=== PATIENT | female | born 1945 | race Caucasian/White ===

== ENCOUNTER 2017-11-05 08:43 | Day surgery (SDC) | payer MEDICARE, OTHER, SELFPAY ==
[2017-11-05 09:24] VITALS: BMI 23.8
[2017-11-05] MEDS: PROPARACAINE 0.5% OPHTH SOL 2 DROPS EYE-OP (09:24)
[2017-11-05] MEDS: CATARACT EYE COMPOUND (10 DROPS/SYRINGE) 3 DROPS EYE-OP (09:29)
[2017-11-05 09:31] VITALS: BP 147/66; PULSE 76; RESP 15; TEMP 35.9; O2SAT 98
--- NOTE | 2017-11-05 10:44 | SUR.OPER ---
Supine on eye stretcher, head on extension cradle secured with tape. Arms tucked at sides with blanket. Pillow under knees.
[2017-11-05] MEDS: LIDOCAINE JELLY 2% 5 ML 1 APPLIC TOP (10:48)
[2017-11-05] MEDS: BALANCED SALT IRRIG SOLN NO.2 500 ML, EPINEPHrine 1 MG IRR (10:48)
[2017-11-05] MEDS: TRIAMCINOLONE 50 MG/5 ML VIAL INJ (10:49)
[2017-11-05] MEDS: TETRACAINE 0.5% OPHTH DROPS 15 ML 2 DROPS EYE-RIGHT (10:50)
[2017-11-05] MEDS: MOXIFLOXACIN OPHTH DROPS 3 ML BOTTLE 2 DROPS INJ (10:51)
[2017-11-05] MEDS: PHENYLEPHRINE/LIDOCAINE 3ML VIAL (OR) EYE-OP (10:52)
--- NOTE | 2017-11-05 10:56 | P.OP.PRE_ITS ---
Pre-operative Note Interval Note Changes: No
--- NOTE | 2017-11-05 10:56 | PM.PREOP ---
Pre-operative Note Interval Note Changes: No
--- NOTE | 2017-11-05 10:56 | PM.OP.1 ---
Operative Date/Time/Diagnoses Pre-op diagnosis: Cataract Right eye Post-op diagnosis: same Procedure & Clinicians Procedure: Cataract Surgery Same procedure as scheduled: Yes Surgeon: Jean Bentley Anesthesia Type: MAC +/- and Sedation Operative Notes Procedure in detail: Patient brought to the operating suite. Tetracaine drops placed in the right eye. Marking instrument was used to fuad the vertical and horizontal meridians. Patient was prepped and draped in sterile manner. Wire lid speculum was placed in the eye. The marking instrument was used to fuad the 75 degree meridian. Betadine drops were placed on the eye. This was irrigated. Lidocaine jelly was placed on the eye. A paracentesis port was created with a side-port blade. 0.1 mL 1% preservative free lidocaine was injected into the anterior chamber. The anterior chamber was deepened with viscoelastic. 2.6 mm keratome was used to create a temporal clear corneal incision. Cystotome and Utrata forceps were used to create continuous tear capsulorrhexis. Balanced salt solution was used to hydro dissect the nucleus. The phacoemulsification handpiece was inserted and the nucleus was removed using the stop and chop technique. The irrigation aspiration handpiece was inserted and the remaining cortex was removed. Anterior chamber was deepened with viscoelastic. An Macias [id number] intraocular lens with a power of 15.0 was injected into the capsular bag. The lens was rotated to the 75 degree meridian. Irrigation aspiration handpiece was inserted and the remaining viscoelastic was removed. Incision was hydrated with balanced salt solution and found to be leak free with pressure with Weck-Rhonda sponges. 0.1 mL Vigamox injected anterior chamber. 0.3 mL Kenalog 10 mg was injected subconjunctivally. Lid speculum was removed. The patient left the operating room in excellent condition. Complications: none Condition: stable Disposition: same day surgery
[2017-11-05 11:13] VITALS: BP 123/70; PULSE 65; RESP 15; TEMP 36.2; O2SAT 99
== END 2017-11-05 11:08 | disposition home or self-care (01) ==
PROVIDERS: PCP Physician Assistant; Visit Provider Ophthalmology
DX: H25.11 Age-related nuclear cataract, right eye (principal)
CPT/HCPCS: J0171; J2250; J3301; V2787

== ENCOUNTER 2017-11-19 10:27 | Day surgery (SDC) | payer MEDICARE, OTHER, SELFPAY ==
[2017-11-19 10:45] VITALS: BP 145/77; PULSE 70; RESP 16; TEMP 36.4; O2SAT 98; BMI 24.0
[2017-11-19] MEDS: PROPARACAINE 0.5% OPHTH SOL 2 DROPS EYE-OP (10:45)
[2017-11-19] MEDS: CATARACT EYE COMPOUND (10 DROPS/SYRINGE) 3 DROPS EYE-OP (10:55)
--- NOTE | 2017-11-19 11:17 | P.OP.PRE_ITS ---
Pre-operative Note Interval Note Changes: No
--- NOTE | 2017-11-19 11:17 | P.OP_ITS ---
Operative Date/Time/Diagnoses Pre-op diagnosis: Cataract Left eye Post-op diagnosis: same Procedure & Clinicians Surgeon: Jean Bentley Anesthesia Type: MAC +/- and Sedation Operative Notes Procedure in detail: Patient brought to the operating suite. Tetracaine drops placed in the left eye. Patient was prepped and draped in sterile manner. Wire lid speculum was placed in the eye. Betadine drops were placed on the eye. This was irrigated. Lidocaine jelly was placed on the eye. A paracentesis port was created with a side-port blade. 0.1 mL 1% preservative free lidocaine was injected into the anterior chamber. The anterior chamber was deepened with viscoelastic. 2.6 mm keratome was used to create a temporal clear corneal incision. Cystotome and Utrata forceps were used to create continuous tear capsulorrhexis. Balanced salt solution was used to hydro dissect the nucleus. The phacoemulsification handpiece was inserted and the nucleus was removed using the stop and chop technique. The irrigation aspiration handpiece was inserted and the remaining cortex was removed. Anterior chamber was deepened with viscoelastic. An Macias ZCB00 intraocular lens with a power of 15.5 was injected into the capsular bag. Irrigation aspiration handpiece was inserted and the remaining viscoelastic was removed. Incision was hydrated with balanced salt solution and found to be leak free with pressure with Weck- Rhonda sponges. 0.1 mL Vigamox injected anterior chamber. 0.3 mL Kenalog 10 mg was injected subconjunctivally. Lid speculum was removed. The patient left the operating room in excellent condition. Complications: none Condition: stable Disposition: same day surgery
--- NOTE | 2017-11-19 11:17 | PM.PREOP ---
Pre-operative Note Interval Note Changes: No
[2017-11-19] MEDS: MOXIFLOXACIN OPHTH DROPS 3 ML BOTTLE 2 DROPS INJ (11:27)
[2017-11-19] MEDS: PHENYLEPHRINE/LIDOCAINE 3ML VIAL (OR) EYE-OP (11:28)
[2017-11-19] MEDS: LIDOCAINE JELLY 2% 5 ML 1 APPLIC TOP (11:28)
[2017-11-19] MEDS: TRIAMCINOLONE 50 MG/5 ML VIAL INJ (11:28)
[2017-11-19] MEDS: TETRACAINE 0.5% OPHTH DROPS 15 ML 2 DROPS EYE-LEFT (11:28)
[2017-11-19] MEDS: BALANCED SALT IRRIG SOLN NO.2 500 ML, EPINEPHrine 1 MG IRR (11:29)
[2017-11-19] MEDS: CHONDROIDTIN/SOD HYALURONATE 1.05 ML SYRINGE INTRAOCULA (11:29)
[2017-11-19 11:50] VITALS: BP 117/71; PULSE 69; RESP 16; TEMP 36.5; O2SAT 97
== END 2017-11-19 11:58 ==
LOC: OR 10:28
PROVIDERS: PCP Physician Assistant; Visit Provider Ophthalmology
DX: H25.12 Age-related nuclear cataract, left eye (principal)
CPT/HCPCS: J0171; J3301

== ENCOUNTER 2019-01-24 07:25 | Emergency (ER) | payer MEDICARE, OTHER, SELFPAY ==
[2019-01-24 07:37] VITALS: BP 143/70; PULSE 82; RESP 16; TEMP 36.8; O2SAT 97; BMI 21.2
--- NOTE | 2019-01-24 07:55 | ED_ITS ---
HPI - Abdominal Pain General Chief Complaint: Abdominal Pain Stated Complaint: rectal bleeding/rlq pain/nausea x1 day Time Seen by Provider: 01/24/19 07:48 Source: patient Mode of arrival: Ambulatory Limitations: no limitations History of Present Illness HPI narrative: 73-year-old female here for evaluation of less than 24 hours of multiple episodes nausea and vomiting. She did state that this morning the diarrhea turned into bright red blood per rectum. States she is having no increasing pain in her lower abdomen. No prior abdominal surgeries. States the nausea comes and goes. She is not currently having any nausea. No recent travel. No recent antibiotics use. Related Data Previous Rx's Medication Instructions Recorded ondansetron HCl [Zofran] 4 mg PO Q6H PRN #10 tab 01/24/19 Allergies Allergy/AdvReac Type Severity Reaction Status Date / Time shellfish derived Allergy Severe Vomiting Verified 11/05/17 09:23 Penicillins AdvReac Unknown Nausea Verified 11/05/17 09:22 Review of Systems Constitutional Constitutional: Denies fever(s) Cardiovascular Cardiovascular: Denies chest pain and Denies dyspnea Respiratory Respiratory: Denies dyspnea Gastrointestinal Gastrointestinal: Reports abdominal pain, Reports diarrhea, Reports nausea and Reports vomiting Genitourinary Genitourinary: Denies dysuria Musculoskeletal Musculoskeletal: Denies myalgias and Denies arthralgias Integumentary/Breasts Skin/Breast: Denies lesions and Denies rash Hematologic/Lymphatic Hematologic/Lymphatic: Denies easy bleeding and Denies easy bruising [facility] Medical History Patient denies medical problems (Acute) Social History household members: spouse Smoking Status: Never smoker Social History household members: spouse Smoking Status: Never smoker Exam Initial Vital Signs Initial Vital Signs: Vital Signs Temperature 98.3 F 01/24/19 07:37 Pulse Rate 82 01/24/19 07:37 Respiratory Rate 16 01/24/19 07:37 Blood Pressure 143/70 H 01/24/19 07:37 Pulse Oximetry 97 01/24/19 07:37 Resp Effort & Inspection: normal respiratory effort Auscultation: clear to auscultation bilaterally GI Inspection: non-distended Palpation: soft, No firm and No tender Skin Lesions: no lesions Rashes: no rashes Neuro General: alert and awake Cognition: normal cognition Speech: speech normal Gait: normal gait Extrem General: normal to inspection and capillary refill normal Psych Appearance: grossly normal and well kempt Course Orders Ordered: ED Orders 01/24/19 07:48 Complete Blood Count AUTO DIFF Stat Comprehensive Metabolic Panel Stat Lipase Stat Partial Thromboplastin Time Stat Prothrombin Time INR Stat 01/24/19 07:49 EKG-12 Lead Stat 01/24/19 07:55 CT abdomen pelvis w con Stat 01/24/19 09:31 Lactate (Lactic Acid) Stat Ondansetron HCl (Zofran) 4 mg IV Q2HR PRN PRN Reason: Nausea And Vomiting Discontinued Medications Sodium Chloride (Normal Saline 0.9%) 1,000 mls @ 1,000 mls/hr IV BOLUS ONE Stop: 01/24/19 08:54 Last Infusion: 01/24/19 10:15 Dose: 0 mls/hr Documented by: Admin: 01/24/19 08:49 Dose: 1,000 mls/hr Documented by: JERONIMO Ketorolac Tromethamine (Toradol) 30 mg IV NOW ONE Stop: 01/24/19 09:07 Last Admin: 01/24/19 09:21 Dose: 30 mg Documented by: JERONIMO Vital Signs Vital signs: Vital Signs - 8 hr 01/24/19 07:37 Temperature 98.3 F Pulse Rate 82 Respiratory Rate 16 Blood Pressure 143/70 H Pulse Oximetry 97 MDM - Abdominal Pain Lab Data Attestation: I reviewed the patient's lab results. Result diagrams: 01/24/19 07:48 01/24/19 07:48 Labs: Lab Results 01/24/19 01/24/19 01/24/19 Range/Units 07:48 07:48 07:48 WBC 13.3 H (4.5-11.0) X10^3/uL RBC 5.22 H (4.0-5.2) X10^6/uL Hgb 15.8 (12.0-16.0) g/dL Hct 47.9 H (36-46) % MCV 91.8 (80-100) fL MCH 30.3 (26-34) PG MCHC 33.0 (30-36) % RDW 12.9 (11.6-14.8) % Plt Count 263 (150-400) X10^3/uL Neut % (Auto) 88.1 H (50-75) % Lymph % (Auto) 9.1 L (25-40) % Victoria % (Auto) 2.2 L (3-14) % Eos % (Auto) 0.0 L (2-4) % Baso % (Auto) 0.6 (0-2) % Neut # (Auto) 36796 H (0721-9918) /uL Lymph # (Auto) 1200 (5386-1113) /uL Victoria # (Auto) 300 (0-900) /uL Eos # (Auto) 0 (0-450) /uL Baso # (Auto) 100 (0-100) /uL PT 11.3 (10.1-12.7) SECONDS INR 1.0 (0.9-1.3) APTT 31 (26.4-36.2) SECONDS Sodium 139 (137-145) mmol/L Potassium 3.5 (3.4-5.1) mmol/L Chloride 100 (98-107) mmol/L Carbon Dioxide 25 (22-32) mmol/L BUN 13 (7-17) mg/dL Creatinine 0.50 L (0.52-1.04) mg/dL Estimated GFR > 60.0 (>60) mL/min BUN/Creatinine Ratio 26.0 H (6-22) Glucose 138 H (80-110) mg/dL Lactate (0.7-2.1) mmol/L Calcium 9.8 (8.4-10.2) mg/dL Total Bilirubin 0.7 (0.2-1.3) mg/dL AST 33 (14-36) IU/L ALT 23 (9-52) IU/L Alkaline Phosphatase 85 (38-126) U/L Total Protein 7.5 (6.3-8.2) g/dL Albumin 4.8 (3.5-5.0) g/dL Globulin 2.7 (1.7-4.1) g/dL Albumin/Globulin Ratio 1.8 (1.0-2.8) Lipase 54 (23-300) U/L 01/24/19 Range/Units 09:31 WBC (4.5-11.0) X10^3/uL RBC (4.0-5.2) X10^6/uL Hgb (12.0-16.0) g/dL Hct (36-46) % MCV (80-100) fL MCH (26-34) PG MCHC (30-36) % RDW (11.6-14.8) % Plt Count (150-400) X10^3/uL Neut % (Auto) (50-75) % Lymph % (Auto) (25-40) % Victoria % (Auto) (3-14) % Eos % (Auto) (2-4) % Baso % (Auto) (0-2) % Neut # (Auto) (4170-6963) /uL Lymph # (Auto) (7854-7845) /uL Victoria # (Auto) (0-900) /uL Eos # (Auto) (0-450) /uL Baso # (Auto) (0-100) /uL PT (10.1-12.7) SECONDS INR (0.9-1.3) APTT (26.4-36.2) SECONDS Sodium (137-145) mmol/L Potassium (3.4-5.1) mmol/L Chloride (98-107) mmol/L Carbon Dioxide (22-32) mmol/L BUN (7-17) mg/dL Creatinine (0.52-1.04) mg/dL Estimated GFR (>60) mL/min BUN/Creatinine Ratio (6-22) Glucose (80-110) mg/dL Lactate 0.9 (0.7-2.1) mmol/L Calcium (8.4-10.2) mg/dL Total Bilirubin (0.2-1.3) mg/dL AST (14-36) IU/L ALT (9-52) IU/L Alkaline Phosphatase (38-126) U/L Total Protein (6.3-8.2) g/dL Albumin (3.5-5.0) g/dL Globulin (1.7-4.1) g/dL Albumin/Globulin Ratio (1.0-2.8) Lipase (23-300) U/L Imaging Data CT scan - abdomen: Radiologist's impression: [address] [address] [address] Scan Report Signed Patient: Katlyn Hanks#: [id number] : 4Acct:[id number] Age/Sex: 73 / FDate of Service: 01/24/19 Loc: ED Accession Number: [id number] Procedure: CT abdomen pelvis w con Ordering Provider: Mckinley Burden D.O. PROCEDURE: CT ABDOMEN PELVIS W CON INDICATIONS: Generalized abdominal pain TECHNIQUE: After the administration of intravenous contrast, 5 mm thick sections acquired from the diaphragm to the symphysis. 5 mm coronal and sagittal reformats were acquired. For radiation dose reduction, the following was used: automated exposure control, adjustment of mA and/or kV according to patient size. COMPARISON: None. FINDINGS: Image quality: Excellent. ABDOMEN: Lung bases: Lung bases are clear. Heart size is normal. A small hiatal hernia is incidentally noted. Solid organs: Liver is normal in size and enhancement. Gallbladder wall is not thickened. Biliary system is non dilated. Pancreas enhances normally. Spleen is normal in size and enhancement. No adrenal nodules. Kidneys demonstrate normal size and enhancement, without hydronephrosis. Peritoneum and bowel: There is moderate wall thickening seen involving the descending colon, beginning at the splenic flexure and extending to involve a portion of the sigmoid colon. There is a nodular appearance seen. No free air or significant free fluid can be seen. No loculated fluid collections are seen. Elsewhere, no bowel wall thickening is seen. No dilated loops of small bowel are seen. Incidental note is made of a normal-appearing appendix. Nodes and vessels: No retroperitoneal or mesenteric adenopathy by size criteria. Aorta and inferior vena cava are normal in size. Miscellaneous: No ventral hernias. PELVIS: Genitourinary: Bladder wall thickness is normal. Calcified uterine fibroids are incidentally noted. Miscellaneous: No inguinal hernias or adenopathy. Bones: No suspicious bony lesions. No vertebral body compression fractures. Degenerative changes are seen, which are most prominent at the L5-S1 level. IMPRESSION: Abnormal wall thickening with surrounding inflammatory change can be seen involving the descending colon. Please correlate with potential infectious and inflammatory causes. Please consider C. difficile colitis, given the nodular appearance of the colonic wall. Ischemia is possible, yet considered to be less likely. Incidental note is made of: Small hiatal hernia Normal appendix Calcified uterine fibroids Focal L5-S1 degenerative change Dictated by: Rigoberto Tolliver M.D. on 01/24/2019 at 8:06 Approved by: Rigoberto Tolliver M.D. on 01/24/2019 at 8:12 ECG Data Attestation: I personally reviewed and interpreted this ECG as follows: Prior ECG tracings: not available for review Interpretation: Sinus rhythm Ventricular rate of 96 Normal QRS Normal QTC Less than [address] depression V3 before MDM Narrative Medical decision making narrative: Patient's lactate is unremarkable. She has a nonsurgical abdomen. I do feel that ischemic colitis is less likely given her labs and her exam. No signs of bowel obstruction. She has not had any vomiting or diarrhea since coming here to the ER. Received fluids. States that her pain is much improved/resolved with the Toradol. I do suspect that this is a gastritis. We did discuss the importance of staying hydrated. Will send home with prescription for Zofran. We will hold on further workup for now. Patient was given return precautions and follow-up instructions. She expressed understanding and agreement with plan. Discharge Plan Departure Patient Disposition: Home Clinical Impression: Nausea and vomiting Qualifiers: Vomiting type: unspecified Vomiting Intractability: non-intractable Qualified Code(s): R11.2 - Nausea with vomiting, unspecified Diarrhea Qualifiers: Diarrhea type: unspecified type Qualified Code(s): R19.7 - Diarrhea, unspecified Instructions: Diarrhea, Nausea and Vomiting-Adult Activity Restrictions/Additional Instructions: I recommend that you contact your primary provider for a follow-up next week. Be sure to increase your fluid intake. Eat a bland diet and introduce foods back to a normal diet when you are able to tolerate them. Return to the emergency department for any new or worsening symptoms Prescriptions: New ondansetron HCl [Zofran] 4 mg tablet 4 mg PO Q6H PRN (Reason: nausea and vomiting) Qty: 10 RF: 0
[2019-01-24 08:00] LABS: Add Manual Diff / Slide Review NO; Basophils Absolute Auto 100 /uL (0-100); Basophils Percent Auto 0.6 % (0-2); Eosinophils Absolute Auto 0 /uL (0-450); Hematocrit 47.9 % (36-46); Hemoglobin 15.8 g/dL (12.0-16.0); Lymphocytes Absolute Auto 1200 /uL (1100-4500); Lymphocytes Percent Auto 9.1 % (25-40); Mean Corpuscular Hemoglobin 30.3 PG (26-34); Mean Corpuscular Volume 91.8 fL (80-100); Monocytes Absolute Auto 300 /uL (0-900); Monocytes Percent Auto 2.2 % (3-14); Neutrophils Absolute Auto 11700 /uL (1500-7000); Neutrophils Percent Auto 88.1 % (50-75); Platelet Count 263 X10^3/uL (150-400); Red Blood Cell Count 5.22 X10^6/uL (4.0-5.2); Red Cell Distribution Width 12.9 % (11.6-14.8); White Blood Cell Count 13.3 X10^3/uL (4.5-11.0)
[2019-01-24 08:01] LABS: Prothrombin Time 11.3 SECONDS (10.1-12.7)
[2019-01-24 08:04] LABS: Chloride 100 mmol/L (98-107); HEMOLYSIS < 15 (0-50); PTT Partial Thromboplastin Tim 31 SECONDS (26.4-36.2)
[2019-01-24 08:06] LABS: Alanine Aminotransferase 23 IU/L (9-52); Albumin 4.8 g/dL (3.5-5.0); Albumin Globulin Ratio 1.8 (1.0-2.8); Alkaline Phosphatase 85 U/L (38-126); Aspartate Aminotransferase 33 IU/L (14-36); Bilirubin Total 0.7 mg/dL (0.2-1.3); Blood Urea Nitrogen 13 mg/dL (7-17); Calcium 9.8 mg/dL (8.4-10.2); Carbon Dioxide 25 mmol/L (22-32); Estimated Glomerular Filt Rate > 60.0 mL/min (>60); Globulin 2.7 g/dL (1.7-4.1); Glucose 138 mg/dL (80-110); Lipase 54 U/L (23-300); Potassium 3.5 mmol/L (3.4-5.1); Sodium 139 mmol/L (137-145); Total Protein 7.5 g/dL (6.3-8.2)
[2019-01-24] MEDS: SODIUM CHLORIDE 0.9% 1,000 ML 1000 ML IV (08:49)
[2019-01-24] MEDS: KETOROLAC 60 MG/2 ML VIAL 30 MG IV (09:21)
[2019-01-24 09:45] VITALS: BP 118/56; PULSE 92; RESP 18; O2SAT 98
[2019-01-24 09:51] LABS: Lactate (Lactic Acid) 0.9 mmol/L (0.7-2.1)
== END 2019-01-24 10:31 | disposition home or self-care (01) ==
PROVIDERS: Emergency Provider Emergency Medicine
DX: R11.2 Nausea with vomiting, unspecified (principal); R10.9 Unspecified abdominal pain; R19.7 Diarrhea, unspecified
CPT/HCPCS: 36415; 74177; 80053; 83605; 83690; 85025; 85610; 85730; 93005; 96361; 96374; 99283; 99285; J1885; Q9967